=== PATIENT | male | born 1945 | race African-American/Black ===

== ENCOUNTER 2018-03-31 14:43 | Inpatient (IN) | payer BC, OTHER ==
[2018-03-31] MEDS ORDERED: GLUCAGON 1 MG/VIAL IM PRN (16:06)
[2018-03-31] MEDS ORDERED: D50W 25 GM/50 ML SYRINGE IV PRN (16:06)
[2018-03-31 16:10] LABS: Absolute Monocytes 0.7 K/uL (0.1-1.3); Absolute Neutrophil 3.6 K/uL (1.8-8.0); Basophils % 0.5 % (0-1.3); Eosinophils % 1.1 % (0-4.4); Hematocrit 46.3 % (39.6-49.0); Lymphocytes % 19.3 % (15.3-44.8); MPV 8.3 fL (7.6-11.3); Monocytes % 12.1 % (3.3-12.3); RBC Red Blood Cell Count 5.28 M/uL (4.33-5.43)
[2018-03-31] MEDS: ENOXAPARIN 30 MG/0.3 ML SQ SCH (16:27)
[2018-03-31] MEDS: LEVOFLOXACIN 750MG/D5W 150 ML IV SCH (16:27)
[2018-03-31 16:29] LABS: Albumin 3.2 g/dL (3.4-5.0); Bilirubin Total 0.7 mg/dL (0.2-1.0); Protein, Total 7.6 g/dL (6.4-8.2)
[2018-03-31] MEDS: INSULIN -REGULAR HUMAN 50 UNIT/0.5 ML ML SQ SCH ×2 (16:30→20:47)
[2018-03-31] MEDS ORDERED: ALBUTEROL 2.5 MG/3 ML NEB SOL NEB SCH (17:00)
[2018-03-31] MEDS ORDERED: PNEUMOCOCCAL VACCINE 0.5 ML IMVAC ONE (18:00)
[2018-03-31] MEDS: ALBUTEROL 2.5 MG/3 ML NEB SOL NEB SCH (19:40)
[2018-03-31] MEDS: HYDRALAZINE HCL 25 MG TABLET PO SCH (20:47)
[2018-03-31] MEDS: GLIMEPIRIDE 2 MG TABLET PO SCH (20:47)
[2018-03-31] MEDS: METOPROLOL TAR 25 MG TAB PO SCH (20:48)
[2018-03-31] MEDS: OSELTAMIVIR 75 MG CAP PO SCH (20:48)
[2018-03-31] MEDS: ATORVASTATIN 20 MG TAB PO SCH (20:54)
[2018-03-31] MEDS ORDERED: VALSARTAN 160 MG TAB PO SCH (21:00)
[2018-04-01 00:50] LABS: Urine Appearance CLEAR; Urine Bilirubin NEGATIVE (NEG); Urine Blood NEGATIVE (NEG); Urine Color YELLOW; Urine Glucose TRACE (NEG); Urine Protein TRACE (NEG); Urine Specific Gravity 1.015 (1.005-1.030)
[2018-04-01] MEDS: GUAIFENESIN/CODEINE 5ML UCUP PO PRN (01:17)
[2018-04-01 01:19] LABS: Urine Microscopic Reflex ORDER UMIC
[2018-04-01 03:05] LABS: Urine Bacteria <20 /HPF (NONE SEEN); Urine Culture Reflex Order NOT NEEDED; Urine RBC <5 /HPF (NONE SEEN)
[2018-04-01] MEDS: INSULIN -REGULAR HUMAN 50 UNIT/0.5 ML ML SQ SCH ×4 (07:30→20:28)
[2018-04-01] MEDS: ALBUTEROL 2.5 MG/3 ML NEB SOL NEB SCH ×4 (08:15→20:00)
[2018-04-01] MEDS: METOPROLOL TAR 25 MG TAB PO SCH ×2 (08:35→20:27)
[2018-04-01] MEDS: OSELTAMIVIR 75 MG CAP PO SCH ×2 (08:35→20:28)
[2018-04-01] MEDS: ENOXAPARIN 30 MG/0.3 ML SQ SCH (08:35)
[2018-04-01] MEDS: VALSARTAN 80 MG TAB PO SCH ×2 (08:36→20:28)
[2018-04-01] MEDS: HYDRALAZINE HCL 25 MG TABLET PO SCH ×2 (08:37→20:28)
[2018-04-01] MEDS: AMLODIPINE 10 MG TAB PO SCH (08:37)
[2018-04-01] MEDS: GLIMEPIRIDE 2 MG TABLET PO SCH ×2 (08:38→20:28)
[2018-04-01] MEDS: LEVOFLOXACIN 750MG/D5W 150 ML IV SCH (16:26)
[2018-04-01] MEDS ORDERED: SIMETHICONE 80 MG TAB PO PRN (19:45)
[2018-04-01] MEDS ORDERED: SIMETHICONE 80 MG TAB ONE (20:25)
[2018-04-01] MEDS: ATORVASTATIN 20 MG TAB PO SCH (20:28)
[2018-04-01] MEDS ORDERED: SIMETHICONE 80 MG TAB PO SCH (21:00)
--- NOTE | 2018-04-02 03:47 | HP ---
Date of Admission: 03/31/2018 Chief Complaint: Pneumonia. History Of Present Illness: A 73-year-old male was brought to the office with history of fever of 10 1 to 102. The patient had wheezing on auscultation and outpatient chest x-ray was interpreted as damián ateral pneumonia. Because of his age, high fever and bilateral nature of the pneumonia, the patient is admitted for IV antibiotic therapy and breathing treatments. Past Medical History: The patient has a history of hypertension, type 2 diabetes, hyperlipidemia. Family History: Positive for diabetes. Allergies: NONE. Home Medicines: Metformin, Benicar, Norvasc, Levothroid, hydralazine, Lopressor, Zocor. Review of Systems: No history of chest pain, nausea, vomiting. Physical Examination: General: Revealed a 73-year-old male. Vital Signs: Febrile. HEENT: Congested throat. Neck: Supple. JVD negative. Chest: Bilateral wheezes and crackles. Heart: Mild tachycardia. Abdomen: Soft. Extremities: No edema. Laboratory Data: Chem profile: BUN 21, random blood sugar of 208, albumin 3.2. CBC: Normal white count. Hemoglobin 15.6. Chest x-ray outpatient, bilateral pneumonia. Assessment: 1.Bilateral pneumonia. 2.Diabetes. 3.Hypertension. Plan: The patient is started on IV Levaquin and breathing treatments. The fact that the patient had a white count that is normal, I added Tamiflu to cover any viral flu pneumonia. The patient would b e having a repeat chest x-ray after which plan will be dictated. VALERI/VIJAY Voice ID: [id number]
[2018-04-02] MEDS: ALBUTEROL 2.5 MG/3 ML NEB SOL NEB SCH ×4 (07:12→20:00)
[2018-04-02] MEDS: AMLODIPINE 10 MG TAB PO SCH (08:14)
[2018-04-02] MEDS: INSULIN -REGULAR HUMAN 50 UNIT/0.5 ML ML SQ SCH ×4 (08:14→21:00)
[2018-04-02] MEDS: ENOXAPARIN 30 MG/0.3 ML SQ SCH (08:14)
[2018-04-02] MEDS: OSELTAMIVIR 75 MG CAP PO SCH ×2 (08:15→22:21)
[2018-04-02] MEDS: VALSARTAN 80 MG TAB PO SCH ×2 (08:16→22:20)
[2018-04-02] MEDS: HYDRALAZINE HCL 25 MG TABLET PO SCH ×2 (08:16→22:21)
[2018-04-02] MEDS: METOPROLOL TAR 25 MG TAB PO SCH ×2 (08:16→22:20)
[2018-04-02] MEDS: GLIMEPIRIDE 2 MG TABLET PO SCH ×2 (08:16→22:20)
--- NOTE | 2018-04-02 10:16 | RAD REPORT ---
EXAM DESCRIPTION: RAD - Chest Pa And Lat (2 Views) - 04/02/2018 9:25 am CLINICAL HISTORY: pnumonia Chest pain. COMPARISON: Chest Pa And Lat (2 Views) dated 03/31/2018 FINDINGS: No significant change is seen the bilateral pulmonary opacities since the comparative exam ination. Most likely, this is related to pneumonia. The heart is mildly enlarged in size. No displace d fractures. IMPRESSION: Stable chest since 03/31/2018.
[2018-04-02] MEDS: LEVOFLOXACIN 750MG/D5W 150 ML IV SCH (16:21)
[2018-04-02] MEDS: ATORVASTATIN 20 MG TAB PO SCH (22:19)
[2018-04-02] MEDS: GUAIFENESIN/CODEINE 5ML UCUP PO PRN (22:32)
--- NOTE | 2018-04-02 23:09 | PN ---
The patient is doing much better today. His wheezing is better. He is afebrile. His x-ray still sh ows the infiltrates, however, there is no worsening. In view of response, he will be continued on same management. VALERI/VIJAY Voice ID: [id number] Report ID: [id number]
[2018-04-03] MEDS: INSULIN -REGULAR HUMAN 50 UNIT/0.5 ML ML SQ SCH ×4 (07:30→20:22)
[2018-04-03] MEDS: ALBUTEROL 2.5 MG/3 ML NEB SOL NEB SCH ×4 (07:48→20:35)
[2018-04-03] MEDS: OSELTAMIVIR 75 MG CAP PO SCH ×2 (09:10→20:21)
[2018-04-03] MEDS: GLIMEPIRIDE 2 MG TABLET PO SCH ×2 (09:10→20:21)
[2018-04-03] MEDS: AMLODIPINE 10 MG TAB PO SCH (09:10)
[2018-04-03] MEDS: ENOXAPARIN 30 MG/0.3 ML SQ SCH (09:10)
[2018-04-03] MEDS: METOPROLOL TAR 25 MG TAB PO SCH ×2 (09:11→20:21)
[2018-04-03] MEDS: HYDRALAZINE HCL 25 MG TABLET PO SCH ×2 (09:11→20:21)
[2018-04-03] MEDS: VALSARTAN 80 MG TAB PO SCH ×2 (09:11→20:21)
[2018-04-03] MEDS: GUAIFENESIN/CODEINE 5ML UCUP PO PRN ×2 (10:10→20:20)
[2018-04-03] MEDS: LEVOFLOXACIN 750MG/D5W 150 ML IV SCH (17:01)
[2018-04-03] MEDS: ATORVASTATIN 20 MG TAB PO SCH (20:20)
--- NOTE | 2018-04-03 22:16 | PN ---
The patient is doing much better today. He has minimal wheezing. He is afebrile. The patient will be continued on the same management for another 24 hours. VALERI/VIJAY Voice ID: [id number] Report ID: [id number]
[2018-04-04] MEDS: INSULIN -REGULAR HUMAN 50 UNIT/0.5 ML ML SQ SCH ×3 (07:30→16:30)
[2018-04-04] MEDS: ALBUTEROL 2.5 MG/3 ML NEB SOL NEB SCH ×3 (07:39→16:00)
[2018-04-04] MEDS: ENOXAPARIN 30 MG/0.3 ML SQ SCH (08:34)
[2018-04-04] MEDS: VALSARTAN 80 MG TAB PO SCH (08:34)
[2018-04-04] MEDS: GLIMEPIRIDE 2 MG TABLET PO SCH (08:34)
[2018-04-04] MEDS: AMLODIPINE 10 MG TAB PO SCH (08:35)
[2018-04-04] MEDS: HYDRALAZINE HCL 25 MG TABLET PO SCH (08:35)
[2018-04-04] MEDS: METOPROLOL TAR 25 MG TAB PO SCH (08:35)
[2018-04-04] MEDS: OSELTAMIVIR 75 MG CAP PO SCH (08:35)
[2018-04-04] MEDS: GUAIFENESIN/CODEINE 5ML UCUP PO PRN (12:30)
[2018-04-04] MEDS: LEVOFLOXACIN 750MG/D5W 150 ML IV SCH (16:46)
== END 2018-04-04 18:28 | disposition home or self-care (01) | DRG 195 ==
LOC: 4TH 15:07
PROVIDERS: ADMIT Internal Medicine; ATTEND Internal Medicine
DX: J18.9 Pneumonia, unspecified organism (principal); E11.9 Type 2 diabetes mellitus without complications; I10 Essential (primary) hypertension; E78.5 Hyperlipidemia, unspecified; Z23 Encounter for immunization
CPT/HCPCS: 36415; 71046; 80053; 81003; 81015; 82962; 85025; 87040; 90670; 94640; G0009; J1650